=== PATIENT | female | born 1980 | race Caucasian/White ===

== ENCOUNTER → 2018-09-14 | Outpatient (CLI) | payer BC ==
--- NOTE | 2018-09-14 09:44 | Diagnostic Imaging Report ---
EXAM: US GALLBLADDER DATE: 09/14/2018 9:02 AM INDICATION: Reflux with esophagitis symptoms COMPARISON: None TECHNIQUE: Transverse and longitudinal tran scale and color doppler sonographic images of the upper abdomen were obtained. FINDINGS: LIVER 12.8 cm in the right midclavicular line. Normal echogenicity, normal contour, no masses. GALLBLADDER No stones, sludge, wall-thickening or pericholecystic fluid. Negative sonographic Burrell's sign. BILE DUCTS No intra nor extra-hepatic biliary dilation. Common bile duct measures 0.3 cm PANCREAS: Visualized portions are normal. RIGHT KIDNEY: 10.7 cm Echogenicity: Normal Collecting System: No hydronephrosis Stones: None Cyst/Mass: None VESSELS: Aorta: Nonaneurysmal Inferior Vena Cava: Patent Main Portal Vein: 1.0 cm, normal size with hepatopetal flow. FREE FLUID: None IMPRESSION: Unremarkable right upper quadrant ultrasound. Signed by: Dr. Nitin Powell M.D. on 09/14/2018 9:41 AM
== END ==
LOC: US 08:48
PROVIDERS: ATTEND Internal Medicine Gastroenterology
DX: K21.0 Gastro-esophageal reflux disease with esophagitis (principal); K29.00 Acute gastritis without bleeding; K44.9 Diaphragmatic hernia without obstruction or gangrene
CPT/HCPCS: 76705